=== PATIENT | male | born 1965 | race Caucasian/White ===

== ENCOUNTER → 2017-12-13 | Outpatient (CLI) | payer MEDICARE ==
[~2017-12-13] MED LIST: MULT-84 PO; NAPR220C22 PO
[2017-12-13 11:07] LABS: AUTOMATED NEUTROPHIL # 5.6 TH/MM3 (1.8-7.7); BASOPHIL # 0.1 TH/MM3 (0-0.2); BASOPHIL % 0.9 % (0.0-2.0); EOSINOPHIL # 0.3 TH/MM3 (0-0.4); EOSINOPHIL % 3.7 % (0.0-4.0); HEMATOCRIT 47.4 % (39.0-51.0); LYMPH % 21.8 % (9.0-44.0); LYMPHOCYTE # 1.8 TH/MM3 (1.0-4.8); MEAN CORPUSCULAR HEMOGLOBIN 31.1 PG (27.0-34.0); MEAN CORPUSCULAR HGB CONC 33.8 % (32.0-36.0); MEAN PLATELET VOLUME 8.7 FL (7.0-11.0); MONO % 7.6 % (0.0-8.0); MONOCYTE # 0.6 TH/MM3 (0-0.9); PLATELET COUNT 187 TH/MM3 (150-450); RED BLOOD COUNT 5.15 MIL/MM3 (4.50-5.90); RED CELL DISTRIBUTION WIDTH 13.8 % (11.6-17.2); WHITE BLOOD COUNT 8.4 TH/MM3 (4.0-11.0)
[2017-12-13 11:11] LABS: PROTHROMBIN TIME - PATIENT 10.4 SEC (9.8-11.6)
[2017-12-13 11:31] LABS: ALBUMIN 3.6 GM/DL (3.4-5.0); AST (GOT) 16 U/L (15-37); BLOOD UREA NITROGEN 8 MG/DL (7-18); CALCIUM 8.8 MG/DL (8.5-10.1); CHLORIDE 104 MEQ/L (98-107); CREATININE 0.52 MG/DL (0.60-1.30); GLOMERULAR FILTRATION RATE 166 ML/MIN (>89); GLUCOSE,FASTING 94 MG/DL (74-99); SODIUM (NA) 135 MEQ/L (136-145)
[2017-12-13 11:37] LABS: ALKALINE PHOSPHATASE 90 U/L (45-117); ALT (GPT) 28 U/L (12-78); TOTAL BILIRUBIN ADULT 0.6 MG/DL (0.2-1.0); TOTAL PROTEIN 7.3 GM/DL (6.4-8.2)
--- NOTE | 2017-12-13 11:42 | RADRPT ---
EXAM DATE: 12/13/2017 11:18 AM EDT AGE/SEX: 52 years / Male INDICATIONS: Evaluate for pneumonia, pneumothorax and communicable diseases. Pre-op colon surgery CLINICAL DATA: This is the patient's initial encounter. Patient reports that signs and symptoms have been present for 1 day and indicates a pain score of 0/10. MEDICAL/SURGICAL HISTORY: None. None. COMPARISON: No prior [place] exams available for comparison. FINDINGS: PA and lateral views of the chest demonstrate the lungs to be symmetrically aerated without evidence of mass, infiltrate or effusion. The cardiomediastinal contours are unremarkable. Osseous structures are intact. On the lateral exam the patient's arm is projected over the chest. CONCLUSION: No acute cardiopulmonary disease. Electronically signed by: Francisco Clinton MD 12/13/2017 11:41 AM EDT
--- NOTE | 2017-12-13 14:49 | EKG ---
Date Performed: 12/13/2017 Time Performed: 10:29:45 PTAGE: 52 years EKG: Sinus rhythm POSSIBLE RIGHT VENTRICULAR CONDUCTION DELAY BORDERLINE ECG NO PREVIOUS TRACING DOCTOR: Pacheco Chanel Interpretating Date/Time 12/13/2017 14:45:45
== END ==
LOC: CPRE 09:55
PROVIDERS: ATTEND Colon & Rectal Surgery
DX: Z01.812 Encounter for preprocedural laboratory examination (principal); Z01.811 Encounter for preprocedural respiratory examination; Z01.810 Encounter for preprocedural cardiovascular examination; D12.3 Benign neoplasm of transverse colon; R94.31 Abnormal electrocardiogram [ECG] [EKG]
CPT/HCPCS: 36415; 71046; 80053; 82378; 85025; 85610; 85730; 93005

== ENCOUNTER 2017-12-20 12:21 | Inpatient (IN) | payer OTHER, MEDICARE ==
[~2017-12-20] VITALS: Ht 180.3 cm; Wt 94.6 kg
[2017-12-20] MEDS ORDERED: METRONIDAZOLE 500 MG/100 ML ISONTONIC SOLN IV SCH (13:15)
[2017-12-20] MEDS ORDERED: METOPROLOL TARTRATE 25 MG TAB PO PRN (13:15)
[2017-12-20] MEDS ORDERED: POVIDONE IODINE 5% (ANTISEPSIS KIT) 4 APPLICATIONS EACH NARE PRN (13:15)
[2017-12-20] MEDS ORDERED: SODIUM CHLORID 0.9% 500 ML IV PRN (13:15)
[2017-12-20] MEDS ORDERED: CHLORHEXIDINE GLUCONATE 2 % 1 PACK (2 CLOTHS) TOPICAL PRN (13:15)
[2017-12-20] MEDS ORDERED: ALVIMOPAN 12 MG CAPSULE - On Call PO SCH (13:15)
[2017-12-20] MEDS ORDERED: LACTATED RINGER'S 1000 ML IV PRN (13:15)
[2017-12-20] MEDS ORDERED: ceFAZolin 1,000 MG/NS 100 ML IV SCH ×2 (13:15)
[2017-12-20] MEDS ORDERED: DEXT 5%-NACL 0.9% 1000 ML INJ 1,000 ML IV SCH (13:30)
[2017-12-20] MEDS ORDERED: DO NOT ADM ANY ANTICOAGULANT DRUGS PRN (17:00)
[2017-12-20] MEDS ORDERED: MIDAZOLAM HCL 2 MG/2 ML VIAL ONE (17:03)
[2017-12-20] MEDS: D5-LR + KCL 20 MEQ INJ 1,000 ML IV SCH ×3 (17:09→22:16)
[2017-12-20] MEDS ORDERED: SODIUM CHLORIDE 0.9% FLUSH 10 ML FLUSH IV FLUSH PRN (17:15)
[2017-12-20] MEDS ORDERED: ZOLPIDEM TARTRATE 5 MG TAB PO PRN (17:15)
[2017-12-20] MEDS ORDERED: ENALAPRILAT 1.25 MG/ML VIAL IV PUSH PRN (17:15)
[2017-12-20] MEDS ORDERED: BENZOCAINE 6 MG/MENTHOL 10 MG LOZENGE BUCCAL PRN (17:15)
[2017-12-20] MEDS ORDERED: POTASSIUM CHLOR 20 MEQ PREMIX 100 ML IV PRN (17:15)
[2017-12-20] MEDS ORDERED: ACETAMINOPHEN/HYDROcodone 325 MG/5 MG TAB PO PRN ×2 (17:15)
[2017-12-20] MEDS ORDERED: POTASSIUM CHLOR 40 MEQ PREMIX 100 ML IV PRN (17:15)
[2017-12-20] MEDS ORDERED: Post-op Orders (for Pharmacy) XX ONE (17:15)
[2017-12-20] MEDS: METOCLOPRAMIDE HCL 10 MG/2 ML VIAL IVS SCH ×2 (18:00→23:39)
[2017-12-20 18:02] LABS: AUTOMATED NEUTROPHIL # 10.3 TH/MM3 (1.8-7.7); BASOPHIL # 0.1 TH/MM3 (0-0.2); BASOPHIL % 0.6 % (0.0-2.0); EOSINOPHIL # 0.2 TH/MM3 (0-0.4); EOSINOPHIL % 1.8 % (0.0-4.0); HEMATOCRIT 47.5 % (39.0-51.0); LYMPH % 16.4 % (9.0-44.0); LYMPHOCYTE # 2.3 TH/MM3 (1.0-4.8); MEAN CELL VOLUME 91.8 FL (80.0-100.0); MEAN CORPUSCULAR HGB CONC 33.7 % (32.0-36.0); MEAN PLATELET VOLUME 8.4 FL (7.0-11.0); MONO % 6.7 % (0.0-8.0); MONOCYTE # 0.9 TH/MM3 (0-0.9); NEUT % 74.5 % (16.0-70.0); PLATELET COUNT 215 TH/MM3 (150-450); RED BLOOD COUNT 5.18 MIL/MM3 (4.50-5.90); RED CELL DISTRIBUTION WIDTH 13.3 % (11.6-17.2); WHITE BLOOD COUNT 13.8 TH/MM3 (4.0-11.0)
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
[2017-12-20 18:30] LABS: BICARBONATE 20.2 MEQ/L (21.0-32.0); CALCIUM 8.1 MG/DL (8.5-10.1); CREATININE 0.53 MG/DL (0.60-1.30)
[2017-12-20 20:00] VITALS: PULSE 90
[2017-12-20] MEDS: SODIUM CHLORIDE 0.9% FLUSH 10 ML FLUSH IV FLUSH SCH (20:23)
[2017-12-20] MEDS: KETOROLAC TROMETHAMINE 30 MG/ML (IVP) VIAL IVP PRN (20:23)
[2017-12-20] MEDS: FUROSEMIDE 20 MG/2 ML VIAL IV PUSH SCH (20:24)
[2017-12-20 21:00] VITALS: PULSE 80
[2017-12-20 21:56] VITALS: BP 112/76; PULSE 74; TEMP 97.6; O2SAT 99
[2017-12-20 22:00] VITALS: PULSE 72
[2017-12-20] MEDS: metroNIDAZOLE 500 MG INJ 100 ML IV SCH (23:38)
[2017-12-20] MEDS: ceFAZolin 2 GM PREMIX 50 ML IV SCH (23:38)
[2017-12-20] MEDS: LORazepam 2 MG/ML VIAL IV PRN (23:39)
[2017-12-21] VITALS (18 sets, daily range): BP systolic 105–147; BP diastolic 66–85; PULSE 78–100; RESP 16–18; TEMP 97.8–101; O2SAT 96–99
[2017-12-21 04:26] LABS: BASOPHIL % 0.3 % (0.0-2.0); HEMATOCRIT 44.5 % (39.0-51.0); LYMPH % 5.8 % (9.0-44.0); LYMPHOCYTE # 0.6 TH/MM3 (1.0-4.8); MEAN CELL VOLUME 91.7 FL (80.0-100.0); MEAN CORPUSCULAR HGB CONC 33.7 % (32.0-36.0); MEAN PLATELET VOLUME 8.3 FL (7.0-11.0); MONO % 9.5 % (0.0-8.0); NEUT % 84.4 % (16.0-70.0); PLATELET COUNT 212 TH/MM3 (150-450); RED BLOOD COUNT 4.85 MIL/MM3 (4.50-5.90); RED CELL DISTRIBUTION WIDTH 13.6 % (11.6-17.2); WHITE BLOOD COUNT 10.6 TH/MM3 (4.0-11.0)
[2017-12-21] MEDS: D5-LR + KCL 20 MEQ INJ 1,000 ML IV SCH ×2 (04:45→16:02)
[2017-12-21 04:47] LABS: BICARBONATE 20.7 MEQ/L (21.0-32.0); CALCIUM 7.6 MG/DL (8.5-10.1); CREATININE 0.73 MG/DL (0.60-1.30)
[2017-12-21] MEDS: MORPHINE SULFATE 4 MG/ML INJ IV PRN ×3 (04:53→16:01)
[2017-12-21] MEDS: metroNIDAZOLE 500 MG INJ 100 ML IV SCH ×2 (06:22→16:01)
[2017-12-21] MEDS: METOCLOPRAMIDE HCL 10 MG/2 ML VIAL IVS SCH ×4 (06:22→23:28)
[2017-12-21] MEDS ORDERED: ALVIMOPAN 12 MG CAPSULE - Post-op dosing PO SCH (09:00)
[2017-12-21] MEDS: KETOROLAC TROMETHAMINE 30 MG/ML (IVP) VIAL IVP PRN (09:05)
[2017-12-21] MEDS: ALVIMOPAN 12 MG CAPSULE PO SCH ×2 (09:05→21:00)
[2017-12-21] MEDS: FUROSEMIDE 20 MG/2 ML VIAL IV PUSH SCH ×2 (09:06→20:59)
[2017-12-21] MEDS: PANTOPRAZOLE SODIUM 40 MG VIAL IVP SCH (09:06)
[2017-12-21] MEDS: ceFAZolin 2 GM PREMIX 50 ML IV SCH ×2 (09:06→16:00)
[2017-12-21] MEDS: SODIUM CHLORIDE 0.9% FLUSH 10 ML FLUSH IV FLUSH SCH ×2 (09:06→21:00)
--- NOTE | 2017-12-21 15:41 | HHI.PR ---
Subjective Remarks No N or V. C/O Right clavicle pain. Tolerating CLD. No BMs Objective Vital Signs Date Time Temp Pulse Resp B/P (MAP) Pulse Ox O2 Delivery O2 Flow Rate FiO2 12/21/17 12:00 99.3 100 18 113/66 (82) 96 12/21/17 12:00 92 12/21/17 11:00 82 12/21/17 10:02 16 12/21/17 10:00 92 12/21/17 09:17 20 12/21/17 09:00 92 12/21/17 08:00 94 12/21/17 08:00 101.0 82 16 117/76 (90) 98 12/21/17 07:00 92 12/21/17 06:13 78 12/21/17 05:17 83 12/21/17 05:16 100.0 78 123/82 (96) 97 12/21/17 04:30 86 12/21/17 03:03 83 12/21/17 01:11 80 12/21/17 00:03 99 Room Air 12/21/17 00:01 98.1 84 114/83 (93) 99 12/21/17 00:01 84 12/20/17 22:00 72 12/20/17 21:57 99 Nasal Cannula 2.00 12/20/17 21:56 97.6 74 112/76 (88) 99 12/20/17 21:00 80 12/20/17 20:00 90 12/20/17 19:15 97.8 79 20 113/79 (90) 99 Nasal Cannula 2 12/20/17 19:00 79 20 111/79 (90) 99 Nasal Cannula 2 12/20/17 18:00 77 20 130/87 (101) 99 Nasal Cannula 2 12/20/17 17:45 82 20 126/89 (101) 97 Nasal Cannula 2 12/20/17 17:30 83 20 136/99 (111) 99 Nasal Cannula 2 12/20/17 17:15 83 20 126/88 (101) 95 Nasal Cannula 2 12/20/17 16:59 98.0 79 20 125/92 (103) 95 Nasal Cannula 2 I/O 12/20/17 12/20/17 12/20/17 12/21/17 12/21/17 12/21/17 07:00 15:00 23:00 07:00 15:00 23:00 Intake Total 2800 ml 2040 ml Output Total 100 ml 1900 ml Balance 2700 ml 140 ml Intake Oral 720 ml IV Total 1000 ml 1320 ml Other 1800 ml Output Urine Total 1900 ml Estimated Blood Loss 100 ml Result Diagram: 12/21/17 0415 12/21/17 0415 Objective Remarks VS-S Abd: soft,dressing dry. Spasms with pain. Labs and I&Os:OK Assessment and Plan Assessment and Plan Stable POD#1 Plan: CLD,OOB,PT(xuan lift), SQ Heparin,Xray Clavicle. Sadiq Cruz MD Dec 21, 2017 15:41
--- NOTE | 2017-12-21 20:11 | RADRPT ---
EXAM DATE: 12/21/2017 7:58 PM EDT AGE/SEX: 52 years / Male INDICATIONS: Pain in right clavicle after colectomy. CLINICAL DATA: This is the patient's initial encounter. Patient reports that signs and symptoms have been present for 1 day and indicates a pain score of 7/10. MEDICAL/SURGICAL HISTORY: None. None. COMPARISON: No prior exams available for comparison. FINDINGS: Bony structures are intact and in normal alignment. Osseous density is normal. Soft tissues are unre markable. No radiopaque foreign bodies seen. Surgical wires are seen over the right mid cervical sp ine. CONCLUSION: Negative right clavicle series. Electronically signed by: Sadiq Mccartney MD 12/21/2017 8:09 PM EDT
[2017-12-21] MEDS: HEPARIN SODIUM - SQ 10,000 UNITS/ML VIAL SQ SCH (20:59)
[2017-12-21] MEDS: ONDANSETRON ODT 4 MG TAB PO PRN (22:16)
[2017-12-22] VITALS (7 sets, daily range): BP systolic 112–151; BP diastolic 69–95; PULSE 96–110; RESP 14–16; TEMP 97.7–100.7; O2SAT 96–99
[2017-12-22] MEDS: D5-LR + KCL 20 MEQ INJ 1,000 ML IV SCH ×2 (00:53→16:07)
[2017-12-22] MEDS: LORazepam 2 MG/ML VIAL IV PRN (00:55)
[2017-12-22] MEDS: METOCLOPRAMIDE HCL 10 MG/2 ML VIAL IVS SCH ×3 (05:49→18:02)
[2017-12-22 06:04] LABS: AUTOMATED NEUTROPHIL # 9.9 TH/MM3 (1.8-7.7); BASOPHIL % 0.3 % (0.0-2.0); EOSINOPHIL # 0.1 TH/MM3 (0-0.4); EOSINOPHIL % 0.5 % (0.0-4.0); HEMATOCRIT 43.5 % (39.0-51.0); HEMOGLOBIN 14.8 GM/DL (13.0-17.0); LYMPH % 9.4 % (9.0-44.0); LYMPHOCYTE # 1.2 TH/MM3 (1.0-4.8); MEAN CELL VOLUME 91.8 FL (80.0-100.0); MEAN CORPUSCULAR HEMOGLOBIN 31.1 PG (27.0-34.0); MEAN CORPUSCULAR HGB CONC 33.9 % (32.0-36.0); MEAN PLATELET VOLUME 8.2 FL (7.0-11.0); MONO % 9.5 % (0.0-8.0); MONOCYTE # 1.2 TH/MM3 (0-0.9); NEUT % 80.3 % (16.0-70.0); PLATELET COUNT 224 TH/MM3 (150-450); RED BLOOD COUNT 4.74 MIL/MM3 (4.50-5.90); RED CELL DISTRIBUTION WIDTH 13.2 % (11.6-17.2); WHITE BLOOD COUNT 12.4 TH/MM3 (4.0-11.0)
[2017-12-22 06:33] LABS: BICARBONATE 23.6 MEQ/L (21.0-32.0); CREATININE 0.63 MG/DL (0.60-1.30)
[2017-12-22] MEDS: BISACODYL 10 MG SUPP RECTAL SCH ×3 (09:00→18:01)
[2017-12-22] MEDS: ONDANSETRON ODT 4 MG TAB PO PRN (10:02)
[2017-12-22] MEDS: ALVIMOPAN 12 MG CAPSULE PO SCH ×2 (10:03→21:14)
[2017-12-22] MEDS: HEPARIN SODIUM - SQ 10,000 UNITS/ML VIAL SQ SCH ×2 (10:04→21:15)
[2017-12-22] MEDS: FUROSEMIDE 20 MG/2 ML VIAL IV PUSH SCH ×2 (10:07→21:15)
[2017-12-22] MEDS: PANTOPRAZOLE SODIUM 40 MG VIAL IVP SCH (10:07)
[2017-12-22] MEDS: SODIUM CHLORIDE 0.9% FLUSH 10 ML FLUSH IV FLUSH SCH ×2 (10:08→21:15)
[2017-12-22] MEDS ORDERED: BISACODYL 10 MG SUPP RECTAL PRN (13:00)
--- NOTE | 2017-12-22 13:05 | HHI.PR ---
Subjective Remarks Nausea,no vomiting. D/W pt and risks of aspiration with emesis Objective Vital Signs Date Time Temp Pulse Resp B/P (MAP) Pulse Ox O2 Delivery O2 Flow Rate FiO2 12/22/17 08:00 97.7 102 16 151/94 (113) 97 12/22/17 04:28 98.2 102 141/95 (110) 99 12/22/17 00:21 98.8 109 138/86 (103) 97 12/21/17 20:27 98.1 92 147/85 (105) 97 12/21/17 16:35 20 12/21/17 16:35 20 12/21/17 16:00 94 12/21/17 16:00 97.8 87 16 105/68 (80) 97 12/21/17 15:00 96 12/21/17 14:00 90 I/O 12/21/17 12/21/17 12/21/17 12/22/17 12/22/17 12/22/17 07:00 15:00 23:00 07:00 15:00 23:00 Intake Total 2040 ml 2820 ml 1849 ml Output Total 1900 ml 1650 ml 1700 ml Balance 140 ml 1170 ml 149 ml Intake Oral 720 ml 1500 ml 480 ml IV Total 1320 ml 1320 ml 1369 ml Output Urine Total 1900 ml 1650 ml 1700 ml # Bowel Movements 0 Result Diagram: 12/22/17 0553 12/22/17 0553 Objective Remarks VS-S Abd: soft,distended,tympanic,wound clean Labs and I&Os:OK Assessment and Plan Assessment and Plan Stable POD#2. Clavicle WNL Plan: FLD very slowly. Must be OOB. PT reports no Eduard lift. Family may bring theirs. D/W RN and family to avoid N,V and aspiration risk. Dulcolax and possible Rectal tube due to Quadriplegic hypertonic sphincter Sadiq Cruz MD Dec 22, 2017 13:05
[2017-12-23] VITALS (8 sets, daily range): BP systolic 97–151; BP diastolic 50–86; PULSE 80–103; RESP 14–18; TEMP 97.5–100.7; O2SAT 96–100
[2017-12-23] MEDS: METOCLOPRAMIDE HCL 10 MG/2 ML VIAL IVS SCH ×5 (00:45→23:03)
[2017-12-23] MEDS: BISACODYL 10 MG SUPP RECTAL SCH (00:45)
[2017-12-23] MEDS: D5-LR + KCL 20 MEQ INJ 1,000 ML IV SCH ×2 (05:38→23:03)
[2017-12-23] MEDS: HEPARIN SODIUM - SQ 10,000 UNITS/ML VIAL SQ SCH ×2 (09:22→22:19)
[2017-12-23] MEDS: ALVIMOPAN 12 MG CAPSULE PO SCH ×2 (09:22→22:17)
[2017-12-23] MEDS: FUROSEMIDE 20 MG/2 ML VIAL IV PUSH SCH (09:23)
[2017-12-23] MEDS: PANTOPRAZOLE SODIUM 40 MG VIAL IVP SCH (09:24)
[2017-12-23] MEDS: SODIUM CHLORIDE 0.9% FLUSH 10 ML FLUSH IV FLUSH SCH ×2 (09:30→21:00)
--- NOTE | 2017-12-23 11:34 | HHI.PR ---
Subjective Remarks No more nausea. Large liquid stool and gas after digital stimulation by me. Flexiseal tube replaced. Not inflated. Objective Vital Signs Date Time Temp Pulse Resp B/P (MAP) Pulse Ox O2 Delivery O2 Flow Rate FiO2 12/23/17 08:35 99.4 93 16 114/85 (95) 98 12/23/17 07:44 97.5 97 18 151/86 (107) 96 12/23/17 04:00 80 16 97 12/23/17 01:44 100.0 91 18 113/79 (90) 99 12/23/17 00:01 100.7 103 14 116/80 (92) 99 12/22/17 20:00 99.6 96 14 112/85 (94) 96 12/22/17 16:10 99.5 97 116/69 (85) 99 12/22/17 12:00 99.0 110 144/87 (106) 99 I/O 12/22/17 12/22/17 12/22/17 12/23/17 12/23/17 12/23/17 07:00 15:00 23:00 07:00 15:00 23:00 Intake Total 1849 ml 1825 ml 240 ml Output Total 1700 ml 1250 ml 250 ml Balance 149 ml 575 ml -10 ml Intake Oral 480 ml 960 ml 240 ml IV Total 1369 ml 865 ml Output Urine Total 1700 ml 1050 ml 250 ml Emesis 200 ml # Bowel Movements 0 Result Diagram: 12/22/17 0553 12/22/17 0553 Objective Remarks VS-S Abd: soft,distended,tympanic,wound clean Rectal: digital stim with copious liquid stool and gas. Labs and I&Os:OK Assessment and Plan Assessment and Plan Stable POD#3. Plan: Tolerated Regular diet.Must be OOB. Hospital xuan lift tried; unable to use it. OOB with 4 person lift yesterday D/W RN and family to avoid N,V and aspiration risk. Dulcolax and Rectal tube due to Quadriplegic hypertonic sphincter Sadiq Cruz MD Dec 23, 2017 11:34
[2017-12-24] MEDS: METOCLOPRAMIDE HCL 10 MG/2 ML VIAL IVS SCH ×2 (02:09→12:00)
[2017-12-24 04:02] VITALS: PULSE 76; RESP 18; O2SAT 98
[2017-12-24 08:30] VITALS: BP 142/93; PULSE 84; RESP 18; TEMP 98.9; O2SAT 99
[2017-12-24] MEDS: BISACODYL 10 MG SUPP RECTAL SCH (09:00)
[2017-12-24] MEDS: PANTOPRAZOLE SODIUM 40 MG VIAL IVP SCH (09:00)
[2017-12-24] MEDS: ALVIMOPAN 12 MG CAPSULE PO SCH (09:00)
[2017-12-24] MEDS: SODIUM CHLORIDE 0.9% FLUSH 10 ML FLUSH IV FLUSH SCH (09:00)
--- NOTE | 2017-12-24 09:54 | HHI.DCPOC ---
Discharge Care Plan Diagnosis: (1) Adenomatous polyp of transverse colon (2) Ascending colectmy Your Health Problems Are: Difficulty with ADL Incision/Drains Skin Breakdown Appetite Changes Irregular Bowel Function Urinary Difficulties Loss of Movements Goals to Promote Your Health * To prevent worsening of your condition and complications * To maintain your health at the optimal level Directions to Meet Your Goals Take your medications as prescribed Follow your dietary instruction Follow activity as directed Keep your appointments as scheduled Take your immunizations and boosters as scheduled If your symptoms worsen call your PCP, if no PCP go to Urgent Care Center or Emergency Room Smoking is Dangerous to Your Health. Avoid second hand smoke Call the 24-hour hour crisis hotline for domestic abuse at Sadiq Cruz MD Dec 24, 2017 09:54
[2017-12-24] MEDS: HEPARIN SODIUM - SQ 10,000 UNITS/ML VIAL SQ SCH (09:58)
--- NOTE | 2017-12-24 09:59 | HHI.FF ---
Face to Face Verification Diagnosis: (1) Decubitus ulcer (2) Autonomic dysreflexia (3) Neurogenic bowel (4) Neurogenic bladder (5) Quadriplegia, C5-C7 incomplete (6) Ascending colectmy Home Health Nursing Order: Medical education Signs/symptoms of disease process Medication education-adverse effect Nursing assessment with vital signs Instructions: Rectal stimulation every other day for 1 week, then twice weekly for 1-2 weeks. I have seen patient Alejandro Ahuja on 12/24/17. My clinical findings support the need for the requested home health care services because: Ltd mobility - disease progression Deconditioned w/ increased weakness Limited ability to care for self Need for psychosocial assistance High risk of falls I certify that my clinical findings support that this patient is homebound because: Post-op weakness Unsteady gait/balance Unsafe to leave home unassisted Need for psychosocial assistance Ybz-[id number]-djutsell bed/chair Unable to use public transportation Sadiq Cruz MD Dec 24, 2017 09:59
--- NOTE | 2017-12-24 10:03 | HHI.PR ---
Subjective Remarks Tolerating regular food. Stooling liquid stool with Flexiseal. Wants to go home. Objective Vital Signs Date Time Temp Pulse Resp B/P (MAP) Pulse Ox O2 Delivery O2 Flow Rate FiO2 12/24/17 04:02 76 18 98 12/23/17 21:08 99.7 84 18 97/69 (78) 98 12/23/17 15:00 100.7 92 18 117/80 (92) 99 12/23/17 11:00 100.4 93 18 100/50 (67) 100 I/O 12/23/17 12/23/17 12/23/17 12/24/17 12/24/17 12/24/17 07:00 15:00 23:00 07:00 15:00 23:00 Intake Total 240 ml 720 ml 480 ml Output Total 250 ml 1525 ml 900 ml Balance -10 ml -805 ml -420 ml Intake Oral 240 ml 720 ml 480 ml Output Urine Total 250 ml 1475 ml 500 ml Stool Total 50 ml 400 ml # Bowel Movements 1 Result Diagram: 12/22/17 0553 12/22/17 0553 Objective Remarks VS-S Abd: soft,distended,tympanic,wound clean Rectal: Flexiseal draining large liquid stools. Labs and I&Os:OK Assessment and Plan Assessment and Plan Stable POD#4 Plan: Tolerated Regular diet. D/C today. F/U 2 weeks with me. Sadiq Cruz MD Dec 24, 2017 10:03
== END 2017-12-24 13:20 | disposition home health service (06) | DRG 329 ==
LOC: HSDI 12:21 → HCPC 19:29 → HCIS 12-23 01:13
PROVIDERS: ADMIT Colon & Rectal Surgery; ATTEND Colon & Rectal Surgery
PROC: 0DTH0ZZ Resection of Cecum, Open Approach (ICD-10-PCS; 2017-12-20)
PROC: 0DBB0ZZ Excision of Ileum, Open Approach (ICD-10-PCS; 2017-12-20)
PROC: 0DTK0ZZ Resection of Ascending Colon, Open Approach (ICD-10-PCS; principal; 2017-12-20 15:10)
DX: D12.2 Benign neoplasm of ascending colon (principal); G82.50 Quadriplegia, unspecified; Z80.0 Family history of malignant neoplasm of digestive organs
CPT/HCPCS: 73000; 80048; 85025; 86850; 86900; 86901; 88307; 88309; 94150; C9113; J0690; J1644; J1885; J1940; J2060; J2250; J2270; J2765; J3010; J3480